=== PATIENT | female | born 1965 | race Caucasian/White ===

== ENCOUNTER 2017-05-28 12:31 | Emergency (ER) | payer MEDICAID ==
[~2017-05-28] VITALS: Ht 167.6 cm; Wt 70.0 kg
[~2017-05-28 12:31] MED LIST: CIPR500T87 PO; LISI-167 PO
[2017-05-28 12:37] VITALS: BP 160/90
[2017-05-28] MEDS ORDERED: LIDOCAINE 1%, 20ML ONE (12:59)
== END 2017-05-28 13:39 | disposition home or self-care (01) ==
LOC: ED 13:33
DX: N76.4 Abscess of vulva (principal); I10 Essential (primary) hypertension
CPT/HCPCS: 56405; 99284

== ENCOUNTER 2017-07-16 11:02 | Day surgery (SDC) | payer MEDICAID ==
[~2017-07-16] VITALS: Ht 167.6 cm; Wt 80.1 kg
[~2017-07-16 11:02] MED LIST changes: +CLIN300C8 PO; +HYDR-883 PO; +NITR100C56 PO
[2017-07-16 11:27] LABS: HCG UR LOT HCG7030192
[2017-07-16 11:33] VITALS: BP 112/77
[2017-07-16 11:41] LABS: HCG UR OBC PASS
[2017-07-16] MEDS ORDERED: MIDAZOLAM 1 MG/ML, 2ML ONE (13:24)
[2017-07-16] MEDS ORDERED: FENTANYL PF 100 MCG/2ML ONE ×2 (13:24→15:16)
[2017-07-16] MEDS ORDERED: ONDANSETRON 2MG/ML, 2ML ONE (13:25)
[2017-07-16] MEDS ORDERED: PROPOFOL 10 MG/ML, 20ML ONE (13:25)
[2017-07-16] MEDS ORDERED: DEXAMETHASONE 4 MG/ML, 1ML ONE (13:25)
[2017-07-16] MEDS ORDERED: CEFAZOLIN 1,000 MG ONE ×2 (13:25→15:16)
[2017-07-16] MEDS ORDERED: PHENYLEPHRINE 10 MG/ML ONE (13:55)
[2017-07-16] MEDS ORDERED: EPHEDRINE 50 MG/ML, 1ML ONE (13:55)
[2017-07-16] MEDS ORDERED: FUROSEMIDE 20 MG/2 ML ONE (13:55)
[2017-07-16] MEDS ORDERED: LIDOCAINE-MPF 2% ,5ML ONE ×2 (13:57→15:16)
[2017-07-16] MEDS ORDERED: ACETAMINOPHEN 325 MG TABLET PO PRN (14:30)
[2017-07-16] MEDS ORDERED: PROMETHAZINE 25 MG/ML, 1ML IV PRN (14:30)
[2017-07-16] MEDS ORDERED: LORazepam 2 MG/ML, 1ML IVPush PRN (14:30)
[2017-07-16] MEDS ORDERED: FENTANYL PF 100 MCG/2ML IV PRN (14:30)
[2017-07-16] MEDS ORDERED: ALBUTEROL/IPRATROPIUM 2.5MG/0.5MG, 3 ML NPPB PRN (14:30)
[2017-07-16] MEDS ORDERED: MIDAZOLAM 1 MG/ML, 2ML IV PRN (14:30)
[2017-07-16] MEDS ORDERED: DIAZEPAM 5 MG/ML, 2ML IVPush PRN (14:30)
[2017-07-16] MEDS ORDERED: HYDROmorphone 1 MG/ML, 1ML IV PRN (14:30)
[2017-07-16] MEDS ORDERED: MEPERIDINE/PF 25MG/0.5ML IVPush PRN (14:30)
[2017-07-16] MEDS ORDERED: METOCLOPRAMIDE 5 MG/ML, 2ML IV PRN (14:30)
[2017-07-16] MEDS ORDERED: OXYcodone 5 MG/5 ML ORAL.SOL UDC PO PRN (14:30)
[2017-07-16] MEDS ORDERED: ONDANSETRON 2MG/ML, 2ML IVPush PRN (14:30)
[2017-07-16] MEDS ORDERED: LABETALOL 5MG/ML, 20ML IV PRN (14:30)
[2017-07-16] MEDS ORDERED: EPHEDRINE 50 MG/ML, 1ML IVPush PRN (14:30)
[2017-07-16] MEDS ORDERED: hydrALAzine 20 MG/ML, 1ML IV PRN (14:30)
== END 2017-07-16 17:00 ==
LOC: OUT 11:02
PROVIDERS: ATTEND Urology
DX: N20.0 Calculus of kidney (principal); I10 Essential (primary) hypertension; Z88.1 Allergy status to other antibiotic agents; Z98.890 Other specified postprocedural states
CPT/HCPCS: 50590; 74000; 81001; 81025; 87077; 87086; 87186; J0690; J1100; J1940; J2250; J2370; J2405; J2704; J3010; J3490

== ENCOUNTER 2018-02-13 10:53 | Inpatient (IN) | payer MEDICAID ==
[~2018-02-13] VITALS: Ht 167.6 cm; Wt 93.3 kg
[2018-02-13] MEDS ORDERED: ONDANSETRON 2MG/ML, 2ML IVPush ONE (11:30)
[2018-02-13] MEDS ORDERED: SODIUM CHLORIDE FLUSH 10ML SYR IVF ONE (11:30)
[2018-02-13] MEDS ORDERED: ONDANSETRON 2MG/ML, 2ML ONE (11:36)
[2018-02-13] MEDS ORDERED: HYDROmorphone 2 MG/ML, 1ML ONE ×2 (11:36→13:41)
[2018-02-13] MEDS: HYDROmorphone 2 MG/ML, 1ML IVPush PRN ×2 (11:55→13:46)
[2018-02-13 12:12] LABS: BASOPHILS % (AUTO) 0 % (0-1); EOSINOPHILS # (AUTO) 0.08 x10^3/uL (0-0.4); EOSINOPHILS % (AUTO) 1 % (1-7); LYMPHOCYTES # (AUTO) 1.11 x10^3/uL (1-3.4); LYMPHOCYTES % (AUTO) 9 % (22-44); MD NO; MEAN CORPUSCULAR HEMOGLOBIN 29.7 pg (27.0-34.8); MEAN CORPUSCULAR VOLUME 89.9 fL (80-100); MEAN PLATELET VOLUME 8.8 fL (7.4-10.4); MONOCYTES # (AUTO) 0.26 x10^3/uL (0.2-0.8); MONOCYTES % (AUTO) 2 % (2-9); NEUTROPHILS # (AUTO) 10.32 x10^3/uL (1.8-6.8); NEUTROPHILS % (AUTO) 88 % (42-75); PLATELET COUNT 301 x10^3/uL (130-400); RED BLOOD COUNT 5.05 x10^6/uL (3.82-5.3); RED CELL DISTRIBUTION WIDTH 14.1 % (9.6-15.2)
[2018-02-13 12:15] LABS: ALBUMIN 3.3 g/dL (3.4-5.0); ANION GAP 7 mmol/L (5-15); CALCIUM 8.5 mg/dL (8.5-10.1); CHLORIDE 110 mmol/L (98-107); CREATININE 1.05 mg/dL (0.55-1.02)
[2018-02-13 13:02] LABS: MICROSCOPIC INDICATED
[2018-02-13 13:03] LABS: CULTURE INDICATED? YES
[2018-02-13] MEDS ORDERED: KETOROLAC 30 MG/1 ML ONE (13:41)
[2018-02-13] MEDS ORDERED: CEFTRIAXONE PMX 1GM/50ML 50 ML IVPB ONE (14:30)
[2018-02-13 14:52] LABS: MICROSCOPIC AUTO
[2018-02-13 14:58] LABS: CULTURE INDICATED? YES
[2018-02-13] MEDS ORDERED: CEFTRIAXONE PMX 1GM/50ML 50 ML ONE (14:58)
[2018-02-13] MEDS ORDERED: SODIUM CHLORIDE FLUSH 10ML SYR IVF PRN (15:00)
[2018-02-13] MEDS ORDERED: hydrALAzine 20 MG/ML, 1ML IVPush PRN (15:30)
[2018-02-13] MEDS: CEFTRIAXONE PMX 2GM/50ML 50 ML IV SCH (15:30)
[2018-02-13] MEDS ORDERED: DOCUSATE 100 MG CAPSULE PO PRN (15:30)
[2018-02-13] MEDS ORDERED: BISACODYL 10 MG SUPP PR PRN (15:30)
[2018-02-13] MEDS ORDERED: PROCHLORPERAZINE 5 MG/ML, 2ML IV PRN (15:30)
[2018-02-13] MEDS ORDERED: POLYETHYLENE GLYCOL 17 GM PACKET PO PRN (15:30)
[2018-02-13] MEDS: SODIUM CHLORIDE 0.9% 1,000 ML IV SCH ×2 (15:53→21:48)
[2018-02-13 15:57] LABS: INTERNATIONAL NORMALIZED RATIO 0.95 (0.93-1.1); PROTHROMBIN TIME 9.9 Seconds (9.6-11.5)
[2018-02-13] MEDS ORDERED: NICOTINE 7 MG/24 HR PATCH.TD24 ONE (16:01)
[2018-02-13] MEDS: NICOTINE 7 MG/24 HR PATCH.TD24 TD SCH (16:28)
[2018-02-13] MEDS ORDERED: LIDOCAINE-MPF 2% ,5ML ONE (17:17)
[2018-02-13] MEDS ORDERED: MIDAZOLAM 1 MG/ML, 5ML ONE (17:27)
[2018-02-13] MEDS ORDERED: FENTANYL PF 250 MCG/5ML ONE (17:27)
[2018-02-13] MEDS ORDERED: NALOXONE 1 MG/ML, 2ML ONE (17:28)
[2018-02-13] MEDS ORDERED: FLUMAZENIL 0.1 MG/1 ML, 5ML ONE (17:28)
[2018-02-13] MEDS ORDERED: VISIPAQUE 270 MG/ML, 50ML BOTTLE ONE (18:30)
[2018-02-13] MEDS ORDERED: SODIUM CHLORIDE 0.9% 1,000ML IVBOLUS ONE ×2 (19:00→21:30)
[2018-02-13 19:45] VITALS: BP 137/81
[2018-02-13 19:48] VITALS: BP 116/82
[2018-02-13] MEDS: ACETAMINOPHEN 325 MG TABLET PO PRN (19:53)
[2018-02-13 20:32] VITALS: BP 106/78
[2018-02-13 20:37] VITALS: BP 115/80
[2018-02-13 21:30] VITALS: BP 114/69
[2018-02-13 21:33] LABS: MEAN CORPUSCULAR HEMOGLOBIN 29.7 pg (27.0-34.8); MEAN CORPUSCULAR HGB CONC 33.4 g/dL (32.4-35.8); MEAN PLATELET VOLUME 8.4 fL (7.4-10.4); PLATELET COUNT 259 x10^3/uL (130-400); RED BLOOD COUNT 4.86 x10^6/uL (3.82-5.3); RED CELL DISTRIBUTION WIDTH 14.3 % (9.6-15.2)
[2018-02-13] MEDS: OXYcodone IR 5MG TABLET PO PRN (21:41)
[2018-02-13 22:10] LABS: MD YES
[2018-02-13 22:14] LABS: BAND#(MANUAL) 1.63 x10^3/uL; BANDS%(MANUAL) 12 % (0-7); LYMPH#(MANUAL) 0.14 x10^3/uL (1-3.4); LYMPHS% (MANUAL) 1 % (22-44); METAMYELOCYTES# (MANUAL) 0.14 x10^3/uL (0-0); METAMYELOCYTES% (MANUAL) 1 % (0-1); MONOS#(MANUAL) 0.41 x10^3/uL (0.3-2.7); MONOS% (MANUAL) 3 % (2-9); SEGS% (MANUAL) 83 % (42-75)
[2018-02-13 22:15] LABS: <PLATELET ESTIMATE> ADEQUATE; <PLT MORPHOLOGY> NORMAL PLT MORPH; <RBC MORPHOLOGY> NORMAL
[2018-02-14 01:00] VITALS: BP 123/79
[2018-02-14 03:39] VITALS: BP 104/65
[2018-02-14] MEDS: SODIUM CHLORIDE 0.9% 1,000 ML IV SCH ×3 (03:56→15:56)
[2018-02-14 05:08] LABS: BASOPHILS # (AUTO) 0.03 x10^3/uL (0-0.1); BASOPHILS % (AUTO) 0 % (0-1); EOSINOPHILS # (AUTO) 0.09 x10^3/uL (0-0.4); EOSINOPHILS % (AUTO) 1 % (1-7); LYMPHOCYTES # (AUTO) 0.88 x10^3/uL (1-3.4); LYMPHOCYTES % (AUTO) 5 % (22-44); MD NO; MEAN CORPUSCULAR HEMOGLOBIN 29.3 pg (27.0-34.8); MEAN CORPUSCULAR HGB CONC 32.6 g/dL (32.4-35.8); MEAN CORPUSCULAR VOLUME 89.9 fL (80-100); MEAN PLATELET VOLUME 8.6 fL (7.4-10.4); MONOCYTES # (AUTO) 0.79 x10^3/uL (0.2-0.8); MONOCYTES % (AUTO) 5 % (2-9); NEUTROPHILS # (AUTO) 14.55 x10^3/uL (1.8-6.8); NEUTROPHILS % (AUTO) 89 % (42-75); PLATELET COUNT 251 x10^3/uL (130-400); RED BLOOD COUNT 4.48 x10^6/uL (3.82-5.3); RED CELL DISTRIBUTION WIDTH 14.3 % (9.6-15.2)
[2018-02-14] MEDS: OXYcodone IR 5MG TABLET PO PRN ×2 (05:56→13:43)
[2018-02-14] MEDS: ACETAMINOPHEN 325 MG TABLET PO PRN (05:56)
[2018-02-14 05:57] LABS: ALANINE AMINOTRANSFERASE 19 U/L (12-78); ALBUMIN 2.5 g/dL (3.4-5.0); ANION GAP 6 mmol/L (5-15); CALCIUM 8.1 mg/dL (8.5-10.1); CHLORIDE 111 mmol/L (98-107); CREATININE 0.98 mg/dL (0.55-1.02)
[2018-02-14 05:59] LABS: ALKALINE PHOSPHATASE 69 U/L (45-117); BILIRUBIN,TOTAL 0.4 mg/dL (0.2-1.0); TOTAL PROTEIN 5.5 g/dL (6.4-8.2)
[2018-02-14 07:27] VITALS: BP 114/72
[2018-02-14] MEDS: HEPARIN 5,000 UNITS/ML, 1ML SQ SCH ×2 (10:49→17:58)
[2018-02-14 13:33] VITALS: BP 113/72
[2018-02-14] MEDS: CEFTRIAXONE PMX 2GM/50ML 50 ML IV SCH (15:53)
[2018-02-14] MEDS: NICOTINE 7 MG/24 HR PATCH.TD24 TD SCH (15:54)
[2018-02-14 19:26] VITALS: BP 120/79
[2018-02-14] MEDS ORDERED: MORPHINE SULFATE 4 MG/ML, 1ML ONE (20:15)
[2018-02-14] MEDS: morphine SULFATE 10 MG/ML, 1ML IVPush PRN (20:17)
[2018-02-15] MEDS: SODIUM CHLORIDE 0.9% 1,000 ML IV SCH ×3 (01:23→12:46)
[2018-02-15 01:57] VITALS: BP 118/75
[2018-02-15] MEDS: HEPARIN 5,000 UNITS/ML, 1ML SQ SCH ×3 (03:07→18:34)
[2018-02-15] MEDS ORDERED: MORPHINE SULFATE 4 MG/ML, 1ML ONE (03:12)
[2018-02-15] MEDS: morphine SULFATE 10 MG/ML, 1ML IVPush PRN (03:14)
[2018-02-15] MEDS: OXYcodone IR 5MG TABLET PO PRN ×4 (03:14→18:34)
[2018-02-15 05:16] LABS: BASOPHILS # (AUTO) 0.03 x10^3/uL (0-0.1); BASOPHILS % (AUTO) 0 % (0-1); EOSINOPHILS # (AUTO) 0.12 x10^3/uL (0-0.4); EOSINOPHILS % (AUTO) 1 % (1-7); LYMPHOCYTES % (AUTO) 10 % (22-44); MD NO; MEAN CORPUSCULAR HEMOGLOBIN 29.9 pg (27.0-34.8); MEAN CORPUSCULAR HGB CONC 32.9 g/dL (32.4-35.8); MEAN CORPUSCULAR VOLUME 90.9 fL (80-100); MEAN PLATELET VOLUME 8.9 fL (7.4-10.4); MONOCYTES # (AUTO) 0.99 x10^3/uL (0.2-0.8); MONOCYTES % (AUTO) 9 % (2-9); NEUTROPHILS # (AUTO) 8.67 x10^3/uL (1.8-6.8); NEUTROPHILS % (AUTO) 79 % (42-75); PLATELET COUNT 201 x10^3/uL (130-400); RED BLOOD COUNT 4.19 x10^6/uL (3.82-5.3); RED CELL DISTRIBUTION WIDTH 14.1 % (9.6-15.2)
[2018-02-15 08:12] VITALS: BP 136/75
[2018-02-15 08:18] LABS: ALBUMIN 2.3 g/dL (3.4-5.0); ANION GAP 7 mmol/L (5-15); CALCIUM 7.9 mg/dL (8.5-10.1); CHLORIDE 110 mmol/L (98-107); CREATININE 0.61 mg/dL (0.55-1.02)
[2018-02-15] MEDS ORDERED: POTASSIUM CHLORIDE 20 MEQ TAB.ER.PRT PO ONE (09:00)
[2018-02-15 12:57] VITALS: BP 128/81
[2018-02-15] MEDS: CEFTRIAXONE PMX 2GM/50ML 50 ML IV SCH (16:08)
[2018-02-15] MEDS: NICOTINE 7 MG/24 HR PATCH.TD24 TD SCH (16:18)
[2018-02-15 19:13] VITALS: BP 112/74
[2018-02-16] MEDS: OXYcodone IR 5MG TABLET PO PRN (00:19)
[2018-02-16 01:39] VITALS: BP 126/86
[2018-02-16] MEDS: HEPARIN 5,000 UNITS/ML, 1ML SQ SCH ×3 (03:14→18:07)
[2018-02-16 05:01] LABS: BASOPHILS # (AUTO) 0.02 x10^3/uL (0-0.1); BASOPHILS % (AUTO) 0 % (0-1); EOSINOPHILS % (AUTO) 2 % (1-7); LYMPHOCYTES % (AUTO) 18 % (22-44); MD NO; MEAN CORPUSCULAR HEMOGLOBIN 29.7 pg (27.0-34.8); MEAN CORPUSCULAR HGB CONC 33.3 g/dL (32.4-35.8); MEAN CORPUSCULAR VOLUME 89.2 fL (80-100); MEAN PLATELET VOLUME 8.5 fL (7.4-10.4); MONOCYTES # (AUTO) 0.61 x10^3/uL (0.2-0.8); MONOCYTES % (AUTO) 9 % (2-9); NEUTROPHILS # (AUTO) 4.61 x10^3/uL (1.8-6.8); NEUTROPHILS % (AUTO) 71 % (42-75); PLATELET COUNT 226 x10^3/uL (130-400); RED BLOOD COUNT 4.07 x10^6/uL (3.82-5.3); RED CELL DISTRIBUTION WIDTH 13.7 % (9.6-15.2)
[2018-02-16 05:07] LABS: ALBUMIN 2.2 g/dL (3.4-5.0); ANION GAP 6 mmol/L (5-15); CALCIUM 7.9 mg/dL (8.5-10.1); CHLORIDE 110 mmol/L (98-107); CREATININE 0.63 mg/dL (0.55-1.02)
[2018-02-16 08:08] VITALS: BP 149/90
[2018-02-16 14:11] VITALS: BP 144/87
[2018-02-16] MEDS ORDERED: SODIUM CHLORIDE 0.9% 1,000 ML IV SCH ×2 (15:24)
[2018-02-16] MEDS: NICOTINE 7 MG/24 HR PATCH.TD24 TD SCH (16:10)
[2018-02-16] MEDS: CEFTRIAXONE PMX 2GM/50ML 50 ML IV SCH (16:11)
[2018-02-16 20:27] VITALS: BP 129/72
[2018-02-17 01:22] VITALS: BP 130/89
[2018-02-17] MEDS: HEPARIN 5,000 UNITS/ML, 1ML SQ SCH (03:15)
[2018-02-17 05:10] LABS: CHLORIDE 107 mmol/L (98-107)
[2018-02-17 05:13] LABS: BASOPHILS # (AUTO) 0.02 x10^3/uL (0-0.1); BASOPHILS % (AUTO) 0 % (0-1); EOSINOPHILS % (AUTO) 2 % (1-7); LYMPHOCYTES # (AUTO) 1.21 x10^3/uL (1-3.4); LYMPHOCYTES % (AUTO) 18 % (22-44); MD NO; MEAN CORPUSCULAR HEMOGLOBIN 29.6 pg (27.0-34.8); MEAN CORPUSCULAR HGB CONC 33.2 g/dL (32.4-35.8); MEAN PLATELET VOLUME 8.8 fL (7.4-10.4); MONOCYTES # (AUTO) 0.58 x10^3/uL (0.2-0.8); MONOCYTES % (AUTO) 9 % (2-9); NEUTROPHILS # (AUTO) 4.77 x10^3/uL (1.8-6.8); NEUTROPHILS % (AUTO) 71 % (42-75); PLATELET COUNT 271 x10^3/uL (130-400); RED BLOOD COUNT 4.47 x10^6/uL (3.82-5.3); RED CELL DISTRIBUTION WIDTH 13.7 % (9.6-15.2)
[2018-02-17 05:21] LABS: ALANINE AMINOTRANSFERASE 25 U/L (12-78); ALBUMIN 2.5 g/dL (3.4-5.0); ALKALINE PHOSPHATASE 81 U/L (45-117); ANION GAP 8 mmol/L (5-15); BILIRUBIN,TOTAL 0.3 mg/dL (0.2-1.0); CALCIUM 8.4 mg/dL (8.5-10.1); CREATININE 0.67 mg/dL (0.55-1.02); TOTAL PROTEIN 6.1 g/dL (6.4-8.2)
[2018-02-17] MEDS ORDERED: POTASSIUM CHLORIDE 20 MEQ TAB.ER.PRT PO ONE (07:00)
[2018-02-17 07:41] VITALS: BP 135/87
[2018-02-17] MEDS ORDERED: SULFAMETH./TRIMETHOPRIM DS 800MG/160MG TABLET PO SCH (09:00)
[2018-02-17] MEDS ORDERED: CEFUROXIME 500 MG TABLET PO SCH (09:00)
[2018-02-17] MEDS ORDERED: TRAM50TA2 PO (10:18)
[2018-02-17] MEDS ORDERED: CEFU500T50 PO (10:18)
== END 2018-02-17 11:46 | disposition home or self-care (01) | DRG 872 ==
LOC: ED 14:52 → EDIP 14:53 → ED 15:09 → 4NOR 18:36 → DCLOUNGE 02-17 11:20
PROVIDERS: ADMIT Hospitalist; ATTEND Hospitalist
PROC: 0T9B70Z Drainage of Bladder with Drainage Device, Via Natural or Artificial Opening (ICD-10-PCS; principal; 2018-02-13)
PROC: 0T9130Z Drainage of Left Kidney with Drainage Device, Percutaneous Approach (ICD-10-PCS; 2018-02-13)
DX: A41.9 Sepsis, unspecified organism (principal); N13.6 Pyonephrosis; N17.9 Acute kidney failure, unspecified; E88.09 Other disorders of plasma-protein metabolism, not elsewhere classified; F17.210 Nicotine dependence, cigarettes, uncomplicated; I10 Essential (primary) hypertension; K59.00 Constipation, unspecified; Z96.641 Presence of right artificial hip joint; B96.20 Unspecified Escherichia coli [E. coli] as the cause of diseases classified elsewhere; Z71.6 Tobacco abuse counseling; Z79.899 Other long term (current) drug therapy; Z80.3 Family history of malignant neoplasm of breast; Z88.2 Allergy status to sulfonamides
CPT/HCPCS: 36415; 50432; 71045; 74176; 76942; 80048; 80053; 81001; 82040; 83605; 83735; 84100; 84443; 85025; 85610; 87040; 87077; 87086; 87186; 93970; 96365; 96375; 96376; 99156; 99157; C1894; J0696; J1170; J1644; J2250; J2405; J3010; J3490; Q9966; C1729; C1751; C1769; J2270; J2310; J7030

== ENCOUNTER → 2018-03-03 | Outpatient (CLI) | payer MEDICAID ==
[~2018-03-03] VITALS: Ht 167.6 cm; Wt 82.2 kg
[~2018-03-03] MED LIST changes: +AMOX875T PO; +CEFU250T66 PO; +CEFU500T50 PO; +LACTATED RINGERS 1,000 ML IV SCH; +PLEASE ENTER HEIGHT AND WEIGHT MC SCH; +TRAM50TA2 PO
[2018-03-03 13:12] VITALS: BP 130/80
== END | disposition home or self-care (01) ==
LOC: OUT 12:26 → EDSTATUS 14:30
PROVIDERS: ATTEND Urology
DX: Z01.818 Encounter for other preprocedural examination (principal); N20.0 Calculus of kidney
CPT/HCPCS: 93005; J7120

== ENCOUNTER 2018-03-06 12:44 | Day surgery (SDC) | payer MEDICAID ==
[~2018-03-06] VITALS: Ht 167.6 cm; Wt 81.6 kg
[~2018-03-06 12:44] MED LIST changes: -AMOX875T PO; +DEXAMETHASONE 4 MG/ML, 1ML ONE; -LACTATED RINGERS 1,000 ML IV SCH; +ONDANSETRON 2MG/ML, 2ML ONE; -PLEASE ENTER HEIGHT AND WEIGHT MC SCH; +PROPOFOL 10 MG/ML, 20ML ONE
[2018-03-06 13:54] VITALS: BP 138/87
[2018-03-06] MEDS ORDERED: AMOX875T PO (14:03)
[2018-03-06] MEDS ORDERED: LACTATED RINGERS 1,000 ML IV SCH (14:05)
[2018-03-06] MEDS ORDERED: FENTANYL PF 100 MCG/2ML ONE (14:40)
[2018-03-06] MEDS ORDERED: MIDAZOLAM 1 MG/ML, 2ML ONE (14:40)
[2018-03-06] MEDS ORDERED: PIPERACILLIN/TAZO/PMX 3.375GM 50 ML IV ONE (16:30)
[2018-03-06] MEDS ORDERED: LABETALOL 5MG/ML, 20ML IV PRN (17:30)
[2018-03-06] MEDS ORDERED: ALBUTEROL SULFATE 2.5 MG/3 ML NPPB PRN (17:30)
[2018-03-06] MEDS ORDERED: HYDROcodone/APAP 7.5-325MG/15ML UDC PO PRN (17:30)
[2018-03-06] MEDS ORDERED: MIDAZOLAM 1 MG/ML, 2ML IV PRN (17:30)
[2018-03-06] MEDS ORDERED: FENTANYL PF 100 MCG/2ML IV PRN (17:30)
[2018-03-06] MEDS ORDERED: MEPERIDINE/PF 25MG/0.5ML IVPush PRN (17:30)
[2018-03-06] MEDS ORDERED: PROMETHAZINE 25 MG/ML, 1ML IV PRN (17:30)
[2018-03-06] MEDS ORDERED: hydrALAzine 20 MG/ML, 1ML IV PRN (17:30)
[2018-03-06] MEDS ORDERED: OXYcodone 5 MG/5 ML ORAL.SOL UDC PO PRN (17:30)
[2018-03-06] MEDS ORDERED: EPHEDRINE 50 MG/ML, 1ML IVPush PRN (17:30)
[2018-03-06] MEDS ORDERED: HYDROmorphone 2 MG/ML, 1ML IV PRN (17:30)
[2018-03-06] MEDS ORDERED: ACETAMINOPHEN 325 MG TABLET PO PRN (17:30)
[2018-03-06] MEDS ORDERED: ONDANSETRON 2MG/ML, 2ML IV PRN (17:30)
== END 2018-03-06 18:08 | disposition home or self-care (01) ==
LOC: OUT 12:44
PROVIDERS: ATTEND Urology
DX: N20.1 Calculus of ureter (principal); N28.89 Other specified disorders of kidney and ureter; I10 Essential (primary) hypertension; F17.210 Nicotine dependence, cigarettes, uncomplicated; Z88.1 Allergy status to other antibiotic agents; Z79.899 Other long term (current) drug therapy; Z96.641 Presence of right artificial hip joint; Z98.890 Other specified postprocedural states
CPT/HCPCS: 52356; 74018; 76000; C1758; C1769; C2617; J1100; J2250; J2405; J2543; J2704; J3010

== ENCOUNTER 2018-07-10 10:47 | Inpatient (IN) | payer MEDICAID, MEDICARE ==
[~2018-07-10] VITALS: Ht 167.6 cm; Wt 89.0 kg
[~2018-07-10 10:47] MED LIST changes: +AMOX875T PO; -DEXAMETHASONE 4 MG/ML, 1ML ONE; +HYDR-3652 PO; -HYDR-883 PO; -ONDANSETRON 2MG/ML, 2ML ONE; -PROPOFOL 10 MG/ML, 20ML ONE
[2018-07-10] MEDS ORDERED: ONDANSETRON 2MG/ML, 2ML IVPush ONE (11:30)
[2018-07-10] MEDS ORDERED: SODIUM CHLORIDE FLUSH 10ML SYR IVF ONE (11:30)
[2018-07-10] MEDS ORDERED: ONDANSETRON 2MG/ML, 2ML ONE (11:36)
[2018-07-10] MEDS: MORPHINE SULFATE 4 MG/ML, 1ML IVPush PRN ×2 (11:37→14:51)
[2018-07-10] MEDS ORDERED: MORPHINE SULFATE 4 MG/ML, 1ML ONE ×2 (11:37→14:51)
[2018-07-10 11:43] LABS: MEAN CORPUSCULAR HEMOGLOBIN 29.4 pg (27.0-34.8); MEAN CORPUSCULAR HGB CONC 32.9 g/dL (32.4-35.8); MEAN CORPUSCULAR VOLUME 89.5 fL (80-100); MEAN PLATELET VOLUME 9.1 fL (7.4-10.4); PLATELET COUNT 252 x10^3/uL (130-400); RED BLOOD COUNT 5.03 x10^6/uL (3.82-5.3); RED CELL DISTRIBUTION WIDTH 13.9 % (9.6-15.2)
[2018-07-10 11:53] LABS: ALBUMIN 3.5 g/dL (3.4-5.0); ANION GAP 8 mmol/L (5-15); CALCIUM 8.5 mg/dL (8.5-10.1); CHLORIDE 113 mmol/L (98-107)
[2018-07-10 11:58] LABS: CREATININE 0.99 mg/dL (0.55-1.02)
[2018-07-10 12:33] LABS: BASOPHILS # (AUTO) 0.01 x10^3/uL (0-0.1); BASOPHILS % (AUTO) 0 % (0-1); EOSINOPHILS # (AUTO) 0.02 x10^3/uL (0-0.4); EOSINOPHILS % (AUTO) 0 % (1-7); LYMPHOCYTES # (AUTO) 0.81 x10^3/uL (1-3.4); LYMPHOCYTES % (AUTO) 7 % (22-44); MD SCAN; MONOCYTES # (AUTO) 0.08 x10^3/uL (0.2-0.8); MONOCYTES % (AUTO) 1 % (2-9); NEUTROPHILS # (AUTO) 11.04 x10^3/uL (1.8-6.8); NEUTROPHILS % (AUTO) 92 % (42-75)
[2018-07-10 12:47] LABS: CULTURE INDICATED? YES; MICROSCOPIC INDICATED
[2018-07-10] MEDS ORDERED: CEFTRIAXONE PMX 1GM/50ML 50 ML IV ONE (15:30)
[2018-07-10] MEDS ORDERED: CEFTRIAXONE PMX 1GM/50ML 50 ML ONE (15:47)
[2018-07-10 16:51] VITALS: BP 126/85
[2018-07-10] MEDS ORDERED: LABETALOL 5MG/ML, 20ML IVPush PRN (17:30)
[2018-07-10] MEDS ORDERED: OXYcodone IR 5MG TABLET PO PRN (17:30)
[2018-07-10] MEDS ORDERED: ONDANSETRON 2MG/ML, 2ML IVPush PRN (17:30)
[2018-07-10] MEDS ORDERED: hydrALAzine 20 MG/ML, 1ML IVPush PRN (17:30)
[2018-07-10] MEDS ORDERED: ACETAMINOPHEN 325 MG TABLET PO PRN (17:30)
[2018-07-10] MEDS ORDERED: POLYETHYLENE GLYCOL 17 GM PACKET PO PRN (17:30)
[2018-07-10] MEDS ORDERED: BISACODYL 10 MG SUPP PR PRN (17:30)
[2018-07-10] MEDS ORDERED: GABAPENTIN 300 MG CAPSULE PO PRN (17:30)
[2018-07-10] MEDS ORDERED: PROMETHAZINE 25 MG/ML, 1ML IM PRN (17:30)
[2018-07-10] MEDS ORDERED: ONDANSETRON ODT 4 MG PO PRN (17:30)
[2018-07-10] MEDS ORDERED: morphine SULFATE 10 MG/ML, 1ML IVPush PRN (17:30)
[2018-07-10] MEDS: SODIUM CHLORIDE 0.9% 1,000 ML IV SCH (18:06)
[2018-07-10] MEDS: NICOTINE 14MG/24 HR PATCH.TD24 TD SCH (18:07)
[2018-07-10 18:09] VITALS: BP 126/85
[2018-07-10 18:37] VITALS: BP 90/66
[2018-07-10 20:01] LABS: FREE T4 (FREE THYROXINE) 1.27 ng/dL (0.76-1.46); THYROID STIMULATING HORMONE 0.192 mIU/L (0.358-3.740)
[2018-07-11 01:20] VITALS: BP 108/67
[2018-07-11] MEDS: SODIUM CHLORIDE 0.9% 1,000 ML IV SCH ×2 (01:33→09:10)
[2018-07-11 06:08] LABS: ALBUMIN 2.7 g/dL (3.4-5.0); ANION GAP 10 mmol/L (5-15); CALCIUM 7.9 mg/dL (8.5-10.1); CHLORIDE 107 mmol/L (98-107); CHOLESTEROL, TOTAL 105 mg/dL (140-239); TRIGLYCERIDES 58 mg/dL (50-200); VLDL CHOLESTEROL 12 mg/dL (0-25)
[2018-07-11 06:10] LABS: ALANINE AMINOTRANSFERASE 23 U/L (12-78); ALKALINE PHOSPHATASE 63 U/L (45-117); BILIRUBIN,TOTAL 0.5 mg/dL (0.2-1.0); CHOL/HDL RATIO 1.9; HDL CHOL % 53 % (28-40); HDL CHOLESTEROL (DIRECT) 56 mg/dL (40-60); LDL CHOLESTEROL,CALCULATED 37 mg/dL (54-169); LDL/HDL RATIO 0.7 (0.5-3.0); TOTAL PROTEIN 5.9 g/dL (6.4-8.2)
[2018-07-11] MEDS: KETOROLAC 30 MG/1 ML IV PRN (06:38)
[2018-07-11 07:56] VITALS: BP 113/75
[2018-07-11 07:56] LABS: MEAN CORPUSCULAR HEMOGLOBIN 29.3 pg (27.0-34.8); MEAN CORPUSCULAR HGB CONC 32.9 g/dL (32.4-35.8); MEAN CORPUSCULAR VOLUME 89.3 fL (80-100); PLATELET COUNT 195 x10^3/uL (130-400); RED BLOOD COUNT 4.89 x10^6/uL (3.82-5.3); RED CELL DISTRIBUTION WIDTH 13.8 % (9.6-15.2)
[2018-07-11 08:29] LABS: BASOPHILS # (AUTO) 0.02 x10^3/uL (0-0.1); BASOPHILS % (AUTO) 0 % (0-1); EOSINOPHILS # (AUTO) 0.07 x10^3/uL (0-0.4); EOSINOPHILS % (AUTO) 1 % (1-7); LYMPHOCYTES # (AUTO) 1.21 x10^3/uL (1-3.4); LYMPHOCYTES % (AUTO) 8 % (22-44); MD SCAN; MONOCYTES # (AUTO) 0.96 x10^3/uL (0.2-0.8); MONOCYTES % (AUTO) 6 % (2-9); NEUTROPHILS # (AUTO) 13.62 x10^3/uL (1.8-6.8); NEUTROPHILS % (AUTO) 86 % (42-75)
[2018-07-11] MEDS: SENNA/DOCUSATE TABLET PO SCH (09:00)
[2018-07-11] MEDS: LISINOPRIL 20 MG TABLET PO SCH (09:09)
[2018-07-11] MEDS ORDERED: PHENYLEPHRINE 10 MG/ML ONE (10:38)
[2018-07-11] MEDS ORDERED: DEXAMETHASONE 4 MG/ML, 1ML ONE (10:38)
[2018-07-11] MEDS ORDERED: PROPOFOL 10 MG/ML, 20ML ONE (10:38)
[2018-07-11] MEDS ORDERED: ONDANSETRON 2MG/ML, 2ML ONE (10:38)
[2018-07-11] MEDS ORDERED: MAGNESIUM SULFATE PMX 2GM/50ML 50 ML IV ONE (11:00)
[2018-07-11] MEDS ORDERED: MIDAZOLAM 1 MG/ML, 2ML ONE (12:26)
[2018-07-11] MEDS ORDERED: FENTANYL PF 100 MCG/2ML ONE (12:26)
[2018-07-11] MEDS ORDERED: ONDANSETRON 2MG/ML, 2ML IV PRN (12:30)
[2018-07-11] MEDS ORDERED: MIDAZOLAM 1 MG/ML, 2ML IV PRN (12:30)
[2018-07-11] MEDS ORDERED: PROMETHAZINE 25 MG/ML, 1ML IV PRN (12:30)
[2018-07-11] MEDS ORDERED: ALBUTEROL/IPRATROPIUM 2.5MG/0.5MG, 3 ML NPPB PRN (12:30)
[2018-07-11] MEDS ORDERED: ACETAMINOPHEN 325 MG TABLET PO PRN (12:30)
[2018-07-11] MEDS ORDERED: FENTANYL PF 100 MCG/2ML IV PRN (12:30)
[2018-07-11] MEDS ORDERED: MEPERIDINE/PF 25MG/0.5ML IVPush PRN (12:30)
[2018-07-11] MEDS ORDERED: HYDROmorphone 2 MG/ML, 1ML IVPush PRN (12:30)
[2018-07-11] MEDS ORDERED: OXYcodone 5 MG/5 ML ORAL.SOL UDC PO PRN (12:30)
[2018-07-11] MEDS ORDERED: LABETALOL 5MG/ML, 20ML IV PRN (12:30)
[2018-07-11] MEDS ORDERED: OXYcodone 5 MG/5 ML ORAL.SOL UDC ONE (13:31)
[2018-07-11] MEDS ORDERED: CEFTRIAXONE PMX 2GM/50ML 50 ML IV SCH (15:00)
[2018-07-11] MEDS ORDERED: CEFTRIAXONE PMX 1GM/50ML 50 ML IV ONE (15:00)
[2018-07-11] MEDS: NICOTINE 14MG/24 HR PATCH.TD24 TD SCH (16:22)
[2018-07-11 20:32] VITALS: BP 114/54
[2018-07-12 00:29] VITALS: BP 109/67
[2018-07-12 03:25] VITALS: BP 109/76
[2018-07-12] MEDS: KETOROLAC 30 MG/1 ML IV PRN (06:17)
[2018-07-12 08:06] VITALS: BP 133/88
[2018-07-12] MEDS: LISINOPRIL 20 MG TABLET PO SCH (08:44)
[2018-07-12] MEDS: SENNA/DOCUSATE TABLET PO SCH (08:45)
[2018-07-12 11:15] LABS: BASOPHILS # (AUTO) 0.15 x10^3/uL (0-0.1); BASOPHILS % (AUTO) 1 % (0-1); EOSINOPHILS # (AUTO) 0.05 x10^3/uL (0-0.4); EOSINOPHILS % (AUTO) 0 % (1-7); LYMPHOCYTES # (AUTO) 1.57 x10^3/uL (1-3.4); LYMPHOCYTES % (AUTO) 14 % (22-44); MD SCAN; MEAN CORPUSCULAR HEMOGLOBIN 29.1 pg (27.0-34.8); MEAN CORPUSCULAR HGB CONC 32.7 g/dL (32.4-35.8); MEAN PLATELET VOLUME 9.8 fL (7.4-10.4); MONOCYTES # (AUTO) 1.02 x10^3/uL (0.2-0.8); MONOCYTES % (AUTO) 9 % (2-9); NEUTROPHILS # (AUTO) 8.68 x10^3/uL (1.8-6.8); NEUTROPHILS % (AUTO) 76 % (42-75); PLATELET COUNT 173 x10^3/uL (130-400); RED BLOOD COUNT 4.21 x10^6/uL (3.82-5.3); RED CELL DISTRIBUTION WIDTH 13.7 % (9.6-15.2)
[2018-07-12 11:22] LABS: ANION GAP 6 mmol/L (5-15); CALCIUM 8.2 mg/dL (8.5-10.1); CHLORIDE 109 mmol/L (98-107); CREATININE 0.83 mg/dL (0.55-1.02)
[2018-07-12] MEDS ORDERED: CEFD300C37 PO (12:15)
[2018-07-12] MEDS ORDERED: ACET-1600 PO (12:15)
[2018-07-12 12:46] VITALS: BP 128/82
[2018-07-16] MEDS ORDERED: MAGNESIUM CHLORIDE 64 MG TABLET.DR PO SCH (23:55)
== END 2018-07-12 13:35 | disposition home or self-care (01) | DRG 661 ==
LOC: ED 15:34 → EDIP 15:35 → ED 16:19 → 4NOR 16:25
PROVIDERS: ADMIT Internal Medicine; ATTEND Internal Medicine
PROC: 0T9B70Z Drainage of Bladder with Drainage Device, Via Natural or Artificial Opening (ICD-10-PCS; 2018-07-10)
PROC: 0T778DZ Dilation of Left Ureter with Intraluminal Device, Via Natural or Artificial Opening Endoscopic (ICD-10-PCS; principal; 2018-07-11 12:15)
DX: N13.6 Pyonephrosis (principal); I10 Essential (primary) hypertension; Z96.641 Presence of right artificial hip joint; Z88.2 Allergy status to sulfonamides; Z87.891 Personal history of nicotine dependence; Z96.0 Presence of urogenital implants
CPT/HCPCS: 36415; 74018; 74176; 76000; 76770; 80048; 80053; 80061; 81001; 82040; 83735; 84439; 84443; 84703; 85025; 87040; 87077; 87086; 87186; 93005; 96365; 96375; G0378; J0696; J1100; J1885; J2250; J2405; J2704; J3010; C1769; C2617; J2370; J3475; J7030

== ENCOUNTER 2018-09-01 16:40 | Outpatient (CLI) | payer MEDICARE, MEDICAID ==
[~2018-09-01 16:40] MED LIST changes: +ACET-1600 PO; +CEFD300C37 PO
[2018-09-04] MEDS ORDERED: POTA10CA PO (10:28)
[2018-09-04] MEDS ORDERED: ALLO300T PO (10:28)
== END 2018-09-01 23:59 | disposition home or self-care (01) ==
LOC: LAB 16:40
PROVIDERS: ATTEND Urology
DX: Z01.818 Encounter for other preprocedural examination (principal); I10 Essential (primary) hypertension; Z87.442 Personal history of urinary calculi; Z79.899 Other long term (current) drug therapy
CPT/HCPCS: 87077; 87086; 87186

== ENCOUNTER 2018-09-10 12:50 | Outpatient (CLI) | payer MEDICARE, MEDICAID ==
[~2018-09-10] VITALS: Ht 167.6 cm; Wt 87.1 kg
[2018-09-10 12:46] VITALS: BP 136/88
[~2018-09-10 12:50] MED LIST changes: +ALLO300T PO; +POTA10CA PO
[2018-09-10] MEDS ORDERED: LACTATED RINGERS 1,000 ML IV SCH (12:51)
[2018-09-10 13:18] LABS: HCG UR SG 1.025 (1.003-1.030); MICROSCOPIC INDICATED
[2018-09-10 13:19] LABS: CULTURE INDICATED? YES
== END 2018-09-10 23:59 | disposition home or self-care (01) ==
LOC: OUT 12:50 → EDSTATUS 15:00 → OUT 23:59
PROVIDERS: ATTEND Urology
DX: N20.0 Calculus of kidney (principal); Z53.9 Procedure and treatment not carried out, unspecified reason
CPT/HCPCS: 81001; 81025; 87077; 87086; 87186

== ENCOUNTER 2018-09-22 11:48 | Day surgery (SDC) | payer MEDICARE, MEDICAID ==
[2018-09-22 12:39] LABS: MICROSCOPIC INDICATED
[2018-09-22 12:48] LABS: CULTURE INDICATED? YES
[2018-09-22 12:49] LABS: HCG UR SG 1.021 (1.003-1.030)
[2018-09-22] MEDS ORDERED: FENTANYL PF 250 MCG/5ML ONE ×2 (13:04→13:20)
[2018-09-22] MEDS ORDERED: MIDAZOLAM 1 MG/ML, 2ML ONE (13:04)
[2018-09-22] MEDS ORDERED: PROPOFOL 10 MG/ML, 20ML ONE (13:10)
[2018-09-22] MEDS ORDERED: ONDANSETRON 2MG/ML, 2ML ONE (13:10)
[2018-09-22] MEDS ORDERED: DEXAMETHASONE 4 MG/ML, 1ML ONE (13:10)
[2018-09-22] MEDS ORDERED: PHENYLEPHRINE 10 MG/ML ONE (13:10)
[2018-09-22] MEDS ORDERED: PIPERACILLIN/TAZO/PMX 3.375GM 50 ML ONE (13:24)
[2018-09-22] MEDS ORDERED: DIAZEPAM 5 MG/ML, 2ML IVPush PRN (14:00)
[2018-09-22] MEDS ORDERED: ACETAMINOPHEN 325 MG TABLET PO PRN (14:00)
[2018-09-22] MEDS ORDERED: OXYcodone 5 MG/5 ML ORAL.SOL UDC PO PRN (14:00)
[2018-09-22] MEDS ORDERED: PLEASE ENTER HEIGHT AND WEIGHT MC SCH (14:00)
[2018-09-22] MEDS ORDERED: LABETALOL 5MG/ML, 20ML IV PRN (14:00)
[2018-09-22] MEDS ORDERED: ALBUTEROL SULFATE 2.5 MG/3 ML NPPB PRN (14:00)
[2018-09-22] MEDS ORDERED: HYDROmorphone 2 MG/ML, 1ML IVPush PRN (14:00)
[2018-09-22] MEDS ORDERED: MEPERIDINE/PF 25MG/0.5ML IVPush PRN (14:00)
[2018-09-22] MEDS ORDERED: KETOROLAC 30 MG/1 ML IV PRN (14:00)
[2018-09-22] MEDS ORDERED: FENTANYL PF 100 MCG/2ML IV PRN (14:00)
[2018-09-22] MEDS ORDERED: hydrALAzine 20 MG/ML, 1ML IV PRN (14:00)
[2018-09-22] MEDS ORDERED: PROMETHAZINE 25 MG/ML, 1ML IV PRN (14:00)
[2018-09-22] MEDS ORDERED: FENTANYL PF 100 MCG/2ML ONE (14:22)
[2018-09-22] MEDS ORDERED: OXYcodone 5 MG/5 ML ORAL.SOL UDC ONE (14:22)
== END 2018-09-22 16:00 | disposition home or self-care (01) ==
LOC: OUT 11:48
PROVIDERS: ATTEND Urology
DX: N20.0 Calculus of kidney (principal); N20.1 Calculus of ureter; N10 Acute pyelonephritis; Z88.1 Allergy status to other antibiotic agents
CPT/HCPCS: 52317; 52356; 74018; 76000; 81001; 81025; 87086; C1758; C1769; C2617; J1100; J2250; J2370; J2405; J2543; J2704; J3010

== ENCOUNTER → 2018-11-17 | Outpatient (CLI) | payer MEDICARE, MEDICAID | END | disposition home or self-care (01) | LOC: EDSTATUS 10-09 13:00 → CFH 15:18 → EDSTATUS 16:00 | PROVIDERS: ATTEND Urology | DX: N13.30 Unspecified hydronephrosis (principal) | CPT/HCPCS: 76770 ==

== ENCOUNTER → 2019-01-11 | Outpatient (CLI) | payer MEDICARE, MEDICAID | END | disposition home or self-care (01) | LOC: CFH 10:50 | PROVIDERS: ATTEND Nurse Practitioner Primary Care | DX: Z12.31 Encounter for screening mammogram for malignant neoplasm of breast (principal) | CPT/HCPCS: 77063; 77067 ==

== ENCOUNTER 2019-01-17 20:23 | Emergency (ER) | payer MEDICARE, MEDICAID ==
[~2019-01-17] VITALS: Ht 167.6 cm; Wt 86.0 kg
[2019-01-17 20:25] VITALS: BP 149/93
--- NOTE | 2019-01-17 21:10 | NUR ---
ALL RESULTS BACK AT THIS TIME
== END 2019-01-17 21:52 | disposition home or self-care (01) ==
LOC: ED 21:47
DX: J15.9 Unspecified bacterial pneumonia (principal); I10 Essential (primary) hypertension
CPT/HCPCS: 71046; 93005; 99283

== ENCOUNTER → 2019-02-15 | Outpatient (CLI) | payer MEDICARE, MEDICAID ==
[2019-02-15 10:49] LABS: ALBUMIN 3.4 g/dL (3.4-5.0); ANION GAP 5 mmol/L (5-15); CALCIUM 8.4 mg/dL (8.5-10.1); CHLORIDE 114 mmol/L (98-107)
[2019-02-15 10:52] LABS: ALANINE AMINOTRANSFERASE 33 U/L (12-78); ALKALINE PHOSPHATASE 92 U/L (45-117); BILIRUBIN,TOTAL 0.5 mg/dL (0.2-1.0); CHOLESTEROL, TOTAL 139 mg/dL (140-239); CREATININE 0.83 mg/dL (0.55-1.02); HDL CHOL % 50 % (28-40); HDL CHOLESTEROL (DIRECT) 69 mg/dL (40-60); LDL CHOLESTEROL,CALCULATED 51 mg/dL (54-169); LDL/HDL RATIO 0.7 (0.5-3.0); TOTAL PROTEIN 6.8 g/dL (6.4-8.2); TRIGLYCERIDES 95 mg/dL (50-200); VLDL CHOLESTEROL 19 mg/dL (0-25)
[2019-02-15 10:54] LABS: BASOPHILS # (AUTO) 0.05 x10^3/uL (0-0.1); BASOPHILS % (AUTO) 1 % (0-1); EOSINOPHILS # (AUTO) 0.05 x10^3/uL (0-0.4); EOSINOPHILS % (AUTO) 1 % (1-7); LYMPHOCYTES # (AUTO) 1.86 x10^3/uL (1-3.4); LYMPHOCYTES % (AUTO) 35 % (22-44); MD SCAN; MEAN CORPUSCULAR HEMOGLOBIN 29.3 pg (27.0-34.8); MEAN CORPUSCULAR HGB CONC 32.8 g/dL (32.4-35.8); MEAN CORPUSCULAR VOLUME 89.2 fL (80-100); MEAN PLATELET VOLUME 8.8 fL (7.4-10.4); MONOCYTES # (AUTO) 0.41 x10^3/uL (0.2-0.8); MONOCYTES % (AUTO) 8 % (2-9); NEUTROPHILS % (AUTO) 56 % (42-75); PLATELET COUNT 188 x10^3/uL (130-400); RED BLOOD COUNT 5.29 x10^6/uL (3.82-5.3); RED CELL DISTRIBUTION WIDTH 14.7 % (9.6-15.2)
== END | disposition home or self-care (01) ==
LOC: LAB 09:57
PROVIDERS: ATTEND Nurse Practitioner Primary Care
DX: I10 Essential (primary) hypertension (principal); N95.1 Menopausal and female climacteric states
CPT/HCPCS: 36415; 80053; 80061; 82670; 83001; 83002; 84144; 85025

== ENCOUNTER → 2020-05-31 | Outpatient (CLI) | payer MEDICARE, MEDICAID | END | disposition home or self-care (01) | LOC: CFH 13:45 | DX: Z12.31 Encounter for screening mammogram for malignant neoplasm of breast (principal) | CPT/HCPCS: 77063; 77067 ==

== ENCOUNTER 2021-01-09 11:42 | Emergency (ER) | payer MEDICARE, MEDICAID ==
[~2021-01-09] VITALS: Ht 167.6 cm; Wt 91.4 kg
[~2021-01-09 11:42] MED LIST changes: -CLIN300C8 PO; +CLIN300C9 PO; +HYDR-1067 PO; -HYDR-3652 PO
--- NOTE | 2021-01-09 13:30 | NUR ---
formal service waiter: Pt ambulatory to room from lobby at this time.
--- NOTE | 2021-01-09 13:41 | NUR ---
LEFT TOOTH ON BOTTOM CRACKED AND SIGNS OF INFECTION. SWELLING UNDER TONGUE, FRENULUM. DENIES FEVERS. DOES NOT HAVE DENTIST OR PRIMARY MD.
[2021-01-09 14:19] VITALS: BP 129/97
== END 2021-01-09 14:21 | disposition home or self-care (01) ==
LOC: ED 14:06
DX: K02.9 Dental caries, unspecified (principal)
CPT/HCPCS: 99281; 99283

== ENCOUNTER 2021-01-15 16:58 | Emergency (ER) | payer MEDICARE, MEDICAID ==
[~2021-01-15] VITALS: Ht 167.6 cm; Wt 86.9 kg
[2021-01-15 17:07] VITALS: BP 101/69
--- NOTE | 2021-01-15 20:40 | NUR ---
stock clipper: Called for patient. Patient not in lobby at this time.
--- NOTE | 2021-01-15 20:50 | NUR ---
stock pitcher: Called for patient. Pt not in lobby at this time for 2nd attempt.
--- NOTE | 2021-01-15 21:14 | NUR ---
mathematics teacher: Called for patient. Pt not in lobby for 3rd attempt.
== END 2021-01-15 21:16 | disposition left against medical advice (07) ==
LOC: ED 17:15
DX: K08.89 Other specified disorders of teeth and supporting structures (principal); Z53.21 Procedure and treatment not carried out due to patient leaving prior to being seen by health care provider